=== PATIENT | female | born 1970 | race Caucasian/White ===

== ENCOUNTER → 2021-03-04 | Outpatient (CLI) | payer BC ==
[2021-03-04 12:58] LABS: Basophils # (A) 0.1 k/uL (0-0.2); Basophils % (A) 1 %; Eosinophils # (A) 0.2 k/uL (0-0.7); Eosinophils % (A) 2 %; HCT 39.1 % (34.0-46.0); HGB 12.8 gm/dL (11.4-16.0); Lymphocytes # (A) 2.6 k/uL (1.0-4.8); Lymphocytes % (A) 29 %; MCH 30.1 pg (25.0-35.0); MCHC 32.8 g/dL (31.0-37.0); MCV 91.7 fL (80.0-100.0); Mean Platelet Volume 7.6; Monocytes # (A) 0.6 k/uL (0-1.0); Monocytes % (A) 6 %; Neutrophils # (A) 5.4 k/uL (1.3-7.7); Neutrophils % (A) 60 %; Platelet Count 305 k/uL (150-450); RBC 4.26 m/uL (3.80-5.40); RDW 13.1 % (11.5-15.5); WBC 8.9 k/uL (3.8-10.6)
== END | disposition home or self-care (01) ==
LOC: LABPAT 12:06
PROVIDERS: ATTEND Obstetrics & Gynecology
DX: Z01.818 Encounter for other preprocedural examination (principal); N93.8 Other specified abnormal uterine and vaginal bleeding; N84.0 Polyp of corpus uteri; I10 Essential (primary) hypertension
CPT/HCPCS: 85025; 93005

== ENCOUNTER 2021-03-23 06:11 | Day surgery (SDC) | payer BC ==
[2021-03-18 13:52] VITALS: BMI 42.5
--- NOTE | 2021-03-22 22:04 | P.HPOB ---
History of Present Illness H&P Date: 03/22/21 Chief Complaint: menorrhagia This is a 50 year old women with a history of dysfunctional uterine bleeding and findings of endometrial polyp by ultrasound. Polyp measures 0.9 cm. She is scheduled for hysteroscopy, D&C and polypectomy and novasure endometrial ablation for definative control of her bleeding. Endometrial biopsy confirms benign polyp tissue. She uses vasectomy for contraception. Review of Systems Constitutional: Denies chills, Denies fever Ears, nose, mouth and throat: Denies headache, Denies sore throat Respiratory: Denies cough Gastrointestinal: Denies abdominal pain, Denies diarrhea, Denies nausea, Denies vomiting Genitourinary: Reports abnormal vaginal bleeding Musculoskeletal: Denies myalgias Integumentary: Denies pruritus, Denies rash Neurological: Denies numbness, Denies weakness Psychiatric: Denies anxiety, Denies depression Endocrine: Denies fatigue, Denies weight change Past Medical History Past Medical History: Cancer, Hypertension Additional Past Medical History / Comment(s): Hx left breast cancer in 2010. Current back pain. History of Any Multi-Drug Resistant Organisms: None Reported Past Surgical History: Breast Surgery, Cholecystectomy, Orthopedic Surgery Additional Past Surgical History / Comment(s): BILATERAL MASTECTOMY WITH RECONSTRUCTION, LEFT KNEE ARTHROSCOPY. Past Anesthesia/Blood Transfusion Reactions: No Reported Reaction Additional Past Anesthesia/Blood Transfusion Reaction / Comment(s): "Started coughing during one surgery." Past Psychological History: Anxiety Smoking Status: Former smoker Past Alcohol Use History: Occasional Additional Past Alcohol Use History / Comment(s): Smoked socially yrs ago. Past Drug Use History: None Reported - Past Family History Father Family Medical History: Coronary Artery Disease (CAD) Additional Family Medical History / Comment(s): CABG. Brother(s) Family Medical History: Coronary Artery Disease (CAD) Additional Family Medical History / Comment(s): HX CABG. Medications and Allergies Home Medications Medication Instructions Recorded Confirmed Type Cyclobenzaprine [Flexeril] 10 mg PO TID PRN 03/18/21 03/18/21 History Metoprolol Succinate (ER) [Toprol 50 mg PO QAM 03/18/21 03/18/21 History Xl] Xanax (Unknown Dose) 1 tab PO HS PRN 03/18/21 03/18/21 History busPIRone HCL [Buspar] 7.5 mg PO BID 03/18/21 03/18/21 History methylPREDNISolone Dose Pack 4 mg PO DIRECTED 03/18/21 03/18/21 History [Medrol Dose Pack] Allergies Allergy/AdvReac Type Severity Reaction Status Date / Time No Known Allergies Allergy Verified 03/18/21 13:53 Exam - OBG Physical Exam Breast: both: normal Abdomen: bowel sounds normal Vulva: both: normal Vagina: normal moisture, no discharge Cervix: no lesion, no discharge Uterus: normal size, normal contour Adnexa: both: normal Anus/Rectum: normal perianal skin, no rectal mass, no hemorrhoids, heme negative Assessment and Plan (1) Dysfunctional uterine bleeding Status: Acute Code(s): N93.8 - OTHER SPECIFIED ABNORMAL UTERINE AND VAGINAL BLEEDING SNOMED Code(s): 55217114572075 (2) Endometrial polyp Status: Acute Code(s): N84.0 - POLYP OF CORPUS UTERI SNOMED Code(s): 19340858 Plan: Procedure reviewed, anticipated recovery including bleeding profile reviewed. RIsks include bleeding, transfusion, infection, uterine perforation or injury, ongoing bleeding. Consent obtained.
[~2021-03-23 06:11] MED LIST: DEXAMETHASONE SOD PHOSPHATE 4 MG/ML 1 ML VIAL IV ONE; LACTATED RINGERS 1,000 ML IV SCH; LIDOCAINE 1% (10MG/ML) FOR IV START INTRADERMA PRN; MIDAZOLAM 2 MG/2 ML VIAL IV PRN; ONDANSETRON 4 MG/2 ML VIAL IVP ONE; Pre Op ABX Message 1 EACH MISC MISCELLANE ONE
[2021-03-23] MEDS ORDERED: HYDROmorphone 0.5 MG/0.5 ML SYRINGE IVP PRN (07:00)
[2021-03-23] MEDS ORDERED: KETOROLAC 15 MG/ML 1 ML VIAL ONE (07:25)
[2021-03-23] MEDS ORDERED: PROPOFOL 10 MG/ML 20 ML VIAL IV ONE (07:25)
[2021-03-23] MEDS ORDERED: LIDOCAINE 1% INJ 10MG/ML (20 ML MDV) ONE (07:25)
[2021-03-23] MEDS ORDERED: fentaNYL (PF) 50 MCG/ML 2 ML AMP ONE (07:25)
[2021-03-23] MEDS ORDERED: MIDAZOLAM 2 MG/2 ML VIAL ONE (07:25)
[2021-03-23] MEDS ORDERED: LIDOCAINE 1%-EPI 1:100,000 20 ML VIAL SUBMUCOSAL ONE ×2 (08:00)
--- NOTE | 2021-03-23 08:24 | P.OP ---
Date of Procedure: 03/23/21 Preoperative Diagnosis: Dysfunctional uterine bleeding and endometrial polyp Postoperative Diagnosis: Same Procedure(s) Performed: Diagnostic hysteroscopy, D&C polypectomy, NovaSure endometrial ablation Anesthesia: [facility] Surgeon: Alida Cazares Estimated Blood Loss (ml): 5 IV fluids (ml): 200 Urine output (ml): 150 Pathology: other (Endometrial curettings) Condition: stable Disposition: PACU Operative Findings: Large friable endometrial polyp emanating from the posterior fundal region of the uterus Description of Procedure: After the patient was met in the preoperative holding area and all questions were answered, she was taken to the operating room where appropriate timeout procedure was undertaken. Anesthetic was administered without incident. She was positioned, prepped and draped in the dorsal lithotomy position. Exam under anesthetic was undertaken. Bladder was drained for approximately 150 mL of clear urine. Single-sided speculum was placed in the vagina and the cervix was grasped anteriorly with a single-tooth tenaculum. Paracervical block with lidocaine plus epinephrine was placed. The uterus was sounded to 9.5 cm. The cervix was sequentially dilated with Hegar dilators to allow for passage of the diagnostic hysteroscope. Hysteroscope was introduced and the above findings were noted. Hysteroscope was removed. Cervix then further dilated to allow for passage of the stone polyp forceps. Polyp forceps were introduced and polyp was removed. The sharp banjo curette was then introduced in the uterine cavity was circumferentially curettaged. The NovaSure ablation device was then inserted in the uterine cavity. Cavity length was 5.5 cm, width 4.0 cm cavity assessment test was passed. The device was enabled for a treatment cycle of 119 seconds at a power of 121 W. After cessation of the treatment cycle the device was removed. The hysteroscope was reintroduced and complete desiccation of the endometrial cavity was appreciated. Instruments were then removed from the cervix. Cervix was observed and no active bleeding was noted. Speculum was removed. The patient was awoken from anesthetic and transported recovery area in good condition. All counts reported to me as correct by the operating room staff.
[2021-03-23 08:29] VITALS: TEMP 97
[2021-03-23 09:14] VITALS: RESP 16
[2021-03-23 09:30] VITALS: BP 137/84; PULSE 67
== END 2021-03-23 10:02 | disposition home or self-care (01) ==
LOC: OR 06:11
PROVIDERS: ATTEND Obstetrics & Gynecology
DX: N93.8 Other specified abnormal uterine and vaginal bleeding (principal); N92.0 Excessive and frequent menstruation with regular cycle; I10 Essential (primary) hypertension; Z79.899 Other long term (current) drug therapy; K21.9 Gastro-esophageal reflux disease without esophagitis; Z87.891 Personal history of nicotine dependence; Z85.3 Personal history of malignant neoplasm of breast; Z98.890 Other specified postprocedural states
CPT/HCPCS: 81025; 58563; J2250; J1100; J2405; J2001; J3010; J1885; J2704; 88305

== ENCOUNTER 2021-06-09 04:30 | Inpatient (IN) | payer BC ==
[2021-06-09] MEDS ORDERED: HYDROmorphone 0.5 MG/0.5 ML SYRINGE IVP STA (05:28)
[2021-06-09 05:57] LABS: Basophils # (A) 0.1 k/uL (0-0.2); Basophils % (A) 0 %; Eosinophils # (A) 0.2 k/uL (0-0.7); Eosinophils % (A) 1 %; HCT 39.2 % (34.0-46.0); HGB 13.5 gm/dL (11.4-16.0); Lymphocytes # (A) 2.5 k/uL (1.0-4.8); Lymphocytes % (A) 15 %; MCH 31.6 pg (25.0-35.0); MCHC 34.3 g/dL (31.0-37.0); MCV 91.9 fL (80.0-100.0); Mean Platelet Volume 7.7; Monocytes # (A) 1.2 k/uL (0-1.0); Monocytes % (A) 7 %; Neutrophils # (A) 12.9 k/uL (1.3-7.7); Neutrophils % (A) 75 %; Platelet Count 346 k/uL (150-450); Poikilocytosis Slight; RBC 4.27 m/uL (3.80-5.40); RDW 13.7 % (11.5-15.5); WBC 17.2 k/uL (3.8-10.6)
--- NOTE | 2021-06-09 06:16 | ED ---
General Adult HPI - General Chief complaint: Skin/Abscess/Foreign Body Stated complaint: Hemorrhoid Time Seen by Provider: 06/09/21 05:06 Source: patient Mode of arrival: ambulatory - History of Present Illness Initial comments: This patient is a 50-year-old woman with history of previous hemorrhoids, who presents with complaint of perianal pain that is been going on for around 2 weeks now, getting progressively worse. The patient states that she had had uterine ablation, and following that procedure little bit of constipation. As result of constipation she believes she may have developed a hemorrhoid. She states there is pain with bowel movement, wiping, and also now with sitting. She has noted there is some perianal swelling. Pains of been progressively worse. She also states that there has been occasional blood with bowel movement. Patient denies any systemic symptoms. No abdominal pain. -: week(s) Location: buttocks Radiation: non-radiation Quality: sharp Consistency: constant Improves with: none Worsens with: other (Bowel movement/ sitting) Associated Symptoms: denies other symptoms Treatments Prior to Arrival: other (Hemorrhoid preparations) - Related Data Home Medications Medication Instructions Recorded Confirmed Cyclobenzaprine [Flexeril] 10 mg PO TID PRN 03/18/21 03/18/21 Metoprolol Succinate (ER) [Toprol 50 mg PO QAM 03/18/21 03/23/21 Xl] Xanax (Unknown Dose) 1 tab PO HS PRN 03/18/21 03/18/21 busPIRone HCL [Buspar] 7.5 mg PO BID 03/18/21 03/18/21 methylPREDNISolone Dose Pack 4 mg PO DIRECTED 03/18/21 03/23/21 [Medrol Dose Pack] Allergies Allergy/AdvReac Type Severity Reaction Status Date / Time No Known Allergies Allergy Verified 06/09/21 04:49 Review of Systems ROS Statement: Those systems with pertinent positive or pertinent negative responses have been documented in the HPI. ROS Other: All systems not noted in ROS Statement are negative. Constitutional: Denies: fever, chills Respiratory: Denies: cough, dyspnea Cardiovascular: Denies: chest pain, palpitations Gastrointestinal: Reports: as per HPI, constipation. Denies: abdominal pain, n ausea, vomiting, diarrhea, melena, hematochezia Genitourinary: Denies: dysuria, frequency, hematuria Musculoskeletal: Denies: back pain Skin: Reports: as per HPI, lesions. Denies: rash Neurological: Denies: headache Hematological/Lymphatic: Denies: easy bleeding Past Medical History Past Medical History: Cancer Additional Past Medical History / Comment(s): BREAST CA 2010 History of Any Multi-Drug Resistant Organisms: None Reported Past Surgical History: Breast Surgery, Cholecystectomy, Orthopedic Surgery, Uterine Ablation Additional Past Surgical History / Comment(s): KIARA. MASTECTOMY WITH RECONSTRUCTION 02/22/2011. SCOPE LEFT KNEE Past Anesthesia/Blood Transfusion Reactions: Postoperative Nausea & Vomiting (PONV) Past Psychological History: Anxiety Smoking Status: Former smoker Past Alcohol Use History: Occasional Past Drug Use History: None Reported - Past Family History Father Family Medical History: Coronary Artery Disease (CAD) Additional Family Medical History / Comment(s): CABG. Brother(s) Family Medical History: Coronary Artery Disease (CAD) Additional Family Medical History / Comment(s): HX CABG. General Exam General appearance: alert, in no apparent distress Head exam: Present: atraumatic, normocephalic Eye exam: Present: normal appearance, scleral icterus Respiratory exam: Present: normal lung sounds bilaterally. Absent: respiratory distress, wheezes, rales, rhonchi, stridor Cardiovascular Exam: Present: regular rate, normal rhythm, normal heart sounds. Absent: systolic murmur, diastolic murmur, rubs, gallop GI/Abdominal exam: Present: soft. Absent: distended, tenderness, guarding, rebound, rigid, mass Rectal exam: Present: normal rectal tone, mass, tenderness, other (There appears to be prerenal abscess extending toward the right buttock.). Absent: hemorrhoids Extremities exam: Present: normal inspection, normal capillary refill. Absent: pedal edema, calf tenderness Back exam: Present: normal inspection. Absent: CVA tenderness (R), CVA tenderness (L), vertebral tenderness Neurological exam: Present: alert Skin exam: Present: warm, dry, intact, normal color. Absent: rash Course Vital Signs 06/09/21 04:49 Temperature 97.7 F Pulse Rate 95 Respiratory 19 Rate Blood Pressure 152/94 O2 Sat by Pulse 95 Oximetry Medical Decision Making - Lab Data Result diagrams: 06/09/21 05:34 Lab Results 06/09/21 Range/Units 05:34 WBC 17.2 H (3.8-10.6) k/uL RBC 4.27 (3.80-5.40) m/uL Hgb 13.5 (11.4-16.0) gm/dL Hct 39.2 (34.0-46.0) % MCV 91.9 (80.0-100.0) fL MCH 31.6 (25.0-35.0) pg MCHC 34.3 (31.0-37.0) g/dL RDW 13.7 (11.5-15.5) % Plt Count 346 (150-450) k/uL MPV 7.7 Neutrophils % 75 % Lymphocytes % 15 % Monocytes % 7 % Eosinophils % 1 % Basophils % 0 % Neutrophils # 12.9 H (1.3-7.7) k/uL Lymphocytes # 2.5 (1.0-4.8) k/uL Monocytes # 1.2 H (0-1.0) k/uL Eosinophils # 0.2 (0-0.7) k/uL Basophils # 0.1 (0-0.2) k/uL Poikilocytosis Slight Disposition Referrals: Christopher Batista DO [Primary Care Provider] - 1-2 days
[2021-06-09 06:17] LABS: ALT 17 U/L (4-34); AST 21 U/L (14-36); African American GFR (CKD) >90 (>60 ml/min/1.73 sqM); Albumin 4.2 g/dL (3.5-5.0); Alkaline Phosphatase 85 U/L (38-126); Amylase 52 U/L (30-110); Anion Gap 11 mmol/L; Blood Urea Nitrogen 9 mg/dL (7-17); Calcium 9.5 mg/dL (8.4-10.2); Carbon Dioxide 22 mmol/L (22-30); Chloride 105 mmol/L (98-107); Glucose 102 mg/dL (74-99); Lipase 112 U/L (23-300); Non-African American GFR(CKD) >90 (>60 ml/min/1.73 sqM); Sodium 138 mmol/L (137-145); Total Bilirubin 1.1 mg/dL (0.2-1.3); Total Protein 7.1 g/dL (6.3-8.2)
--- NOTE | 2021-06-09 06:53 | CT ---
EXAMINATION TYPE: CT pelvis w con DATE OF EXAM: 06/09/2021 COMPARISON: None. HISTORY: perianal abscess. Anal pain and swelling. CT DLP: 2765 mGycm Automated exposure control for dose reduction was used. CONTRAST: Performed with IV Contrast, patient injected with 100 mL of Isovue 300. FINDINGS: Adjacent to the anus in the left sided fact there is mild to moderate fat stranding with thin-walled fluid collections and a few air-fluid levels, some irregular linear medial enhancement is noted. Over all area of inflammation measures 5.3 x 4.7 cm axial image 70 x 5.4 cm craniocaudal dimension on imag e 78. Findings consistent with perianal inflammatory process with developing abscess formation. No th ick walled well-formed drainable abscess currently seen. There is an anteverted uterus. Both ovaries normal in size. No suspicious bowel dilatation. Normal-ap pearing appendix. No intraperitoneal pelvic fluid collection. Occasional scattered pelvic phlebolith. Urinary bladder within normal limits. Bilateral groin region unremarkable. Incidental moderate to severe disc space narrowing with sclerosis and vacuum disc phenomenon right L4 -L5 level. IMPRESSION: Left perianal infectious or inflammatory process over 5.4 segment with ill-defined fluid and fluid collections that have air fluid levels. No well-formed thick walled drainable abscess curre ntly. Developing abscesses suspected.
[2021-06-09] MEDS ORDERED: PIPERACILLIN-TAZOBACTAM 3.375 GM in SODIUM CHLORIDE 0.9% 100 ML IVPB STA (07:19)
[2021-06-09] MEDS ORDERED: NALOXONE 0.4 MG/ML 1 ML VIAL IV PRN (07:20)
[2021-06-09] MEDS ORDERED: MAG HYDROX/AL HYDROX/SIMETH 30 ML CUP PO PRN (07:20)
[2021-06-09] MEDS ORDERED: ONDANSETRON 4 MG/2 ML VIAL IVP PRN (07:20)
[2021-06-09] MEDS: METOPROLOL SUCCINATE (ER) 50 MG TAB.ER.24H PO SCH (08:41)
[2021-06-09] MEDS: FAMOTIDINE 20 MG TAB PO SCH ×2 (08:41→19:46)
[2021-06-09] MEDS: busPIRone HCl 5 MG TAB PO SCH ×2 (08:41→19:46)
[2021-06-09] MEDS: SODIUM CHLORIDE 0.9% 1,000 ML IV SCH ×2 (08:41→15:55)
[2021-06-09] MEDS: HYDROmorphone 1 MG/ML 1 ML SYRINGE IVP PRN (08:47)
--- NOTE | 2021-06-09 12:45 | P.HPIM ---
History of Present Illness This is a pleasant 50 years old female with past medical history of breast cancer. History of anxiety. Presents with perineal area of discomfort, she thought she had the hemorrhoids with little discomfort, occasional pain, little bit of blood at times but not overt GI bleed. She denies fever. Denies trauma. Ulcerative colitis. No chest pain or dyspnea or headache or dizziness. No fever on Admission she has some tachycardia 95-105. Other vitals look stable Labs showed leukocytosis of 17.2. Rest of CBC and BMP is unremarkable. She has pelvic CT with IV contrast showing left perianal infectious process with possible abscess 5.3 x 4.7 x 7.0 cm She denies smoking, illicit tracts. Occasional alcohol In the emergency room she was started on Zosyn on normal saline at 130 mL/h Review of Systems CONSTITUTIONAL: No fever, no malaise, no fatigue. HEENT: No recent visual problems or hearing problems. Denied any sore throat. CARDIOVASCULAR: No orthopnea, PND, no palpitations, no syncope. PULMONARY: No shortness of breath, no cough, no hemoptysis. GASTROINTESTINAL: No diarrhea, no nausea, no vomiting, no abdominal pain. Normoactive bowel sounds. NEUROLOGICAL: No headaches, no weakness, no numbness. HEMATOLOGICAL: Denies any bleeding or petechiae. GENITOURINARY: Denies any burning micturition, frequency, or urgency. MUSCULOSKELETAL/RHEUMATOLOGICAL: Denies any joint pain, swelling, or any muscle pain. ENDOCRINE: Denies any polyuria or polydipsia. Past Medical History Past Medical History: Cancer Additional Past Medical History / Comment(s): BREAST CA 2010 History of Any Multi-Drug Resistant Organisms: None Reported Past Surgical History: Breast Surgery, Cholecystectomy, Orthopedic Surgery, Uterine Ablation Additional Past Surgical History / Comment(s): KIARA. MASTECTOMY WITH RECONSTRUCTION 02/22/2011. SCOPE LEFT KNEE Past Anesthesia/Blood Transfusion Reactions: Postoperative Nausea & Vomiting (PONV) Past Psychological History: Anxiety Smoking Status: Former smoker Past Alcohol Use History: Occasional Past Drug Use History: None Reported - Past Family History Father Family Medical History: Coronary Artery Disease (CAD) Additional Family Medical History / Comment(s): CABG. Brother(s) Family Medical History: Coronary Artery Disease (CAD) Additional Family Medical History / Comment(s): HX CABG. Medications and Allergies Home Medications Medication Instructions Recorded Confirmed Type Metoprolol Succinate (ER) [Toprol 50 mg PO QAM 03/18/21 06/09/21 History Xl] busPIRone HCL [Buspar] 7.5 mg PO BID 03/18/21 06/09/21 History ALPRAZolam [Xanax] 0.5 mg PO DAILY PRN 06/09/21 06/09/21 History traZODone HCL 50 mg PO HS PRN 06/09/21 06/09/21 History Allergies Allergy/AdvReac Type Severity Reaction Status Date / Time No Known Allergies Allergy Verified 06/09/21 07:59 Physical Exam Vitals: Vital Signs Temp Pulse Resp BP Pulse Ox 06/09/21 10:00 18 06/09/21 09:00 18 06/09/21 08:31 105 H 18 151/114 97 06/09/21 04:49 97.7 F 95 19 152/94 95 Intake and Output 06/08/21 06/09/21 06/09/21 22:59 06:59 14:59 Other: Weight 122.47 kg Examination and call encounter on rash 18 was done in the presents of the emergency room nurse Evelyn and after patient gave verbal consent GENERAL: The patient is alert and oriented x3, not in any acute distress. Well developed, well nourished. HEENT: Pupils are round and equally reacting to light. EOMI. No scleral icterus. No conjunctival pallor. Normocephalic, atraumatic. No pharyngeal erythema. No thyromegaly. CARDIOVASCULAR: S1 and S2 present. No murmurs, rubs, or gallops. PULMONARY: Chest is clear to auscultation, no wheezing or crackles. -ABDOMEN: Soft, nontender, nondistended, normoactive bowel sounds. No palpable organomegaly. Left perianal fluctuating area with induration. No discharge or open wound MUSCULOSKELETAL: No joint swelling or deformity. EXTREMITIES: No cyanosis, clubbing, or pedal edema. NEUROLOGICAL: Gross neurological examination did not reveal any focal deficits. SKIN: No rashes. No petechiae Results CBC & Chem 7: 06/09/21 05:34 06/09/21 05:34 Labs: Abnormal Lab Results - Last 24 Hours (Table) 06/09/21 06/09/21 Range/Units 05:34 05:34 WBC 17.2 H (3.8-10.6) k/uL Neutrophils # 12.9 H (1.3-7.7) k/uL Monocytes # 1.2 H (0-1.0) k/uL Glucose 102 H (74-99) mg/dL Assessment and Plan Assessment: Left perianal abscess Mild sepsis with tachycardia and leukocytosis secondary to above Obesity with BMI of 42.3 Plan: This is a pleasant 50 years old female who presents with left perianal abscess. Continue with antibiotics and IV fluid Surgical team consult, who recommended IV antibiotics and monitoring for now Continue with IV fluids Labs and medication were reviewed.. Continue same treatment. Continue with symptomatic treatment. Resume home medication. Monitor lytes and vitals. DVT and GI prophylaxis. Further recommendations depends on the clinical course of the patient DVT prophylaxis: Subcutaneous heparin GI Prophylaxis: Pepcid
[2021-06-09] MEDS: HYDROmorphone 0.5 MG/0.5 ML SYRINGE IVP PRN ×2 (13:04→19:48)
--- NOTE | 2021-06-09 13:33 | P.GSCN ---
History of Present Illness Consult date: 06/09/21 Reason for Consult: Perianal infection History of present illness: This a 50-year-old female who is a two-week history of perianal pain. Patient states her pain increased yesterday. She was worked up emergency room found evidence of a possible early perianal abscess. In the left gluteal area Past Medical History Past Medical History: Cancer Additional Past Medical History / Comment(s): BREAST CA 2010 History of Any Multi-Drug Resistant Organisms: None Reported Past Surgical History: Breast Surgery, Cholecystectomy, Orthopedic Surgery, Uterine Ablation Additional Past Surgical History / Comment(s): KIARA. MASTECTOMY WITH RECONSTRUCTION 02/22/2011. SCOPE LEFT KNEE Past Anesthesia/Blood Transfusion Reactions: Postoperative Nausea & Vomiting (PONV) Past Psychological History: Anxiety Additional Psychological History / Comment(s): R/T BREAST CA- PT DOES GET CLAUSTROPHOBIC AT TIMES Smoking Status: Never smoker Past Alcohol Use History: Occasional Past Drug Use History: None Reported - Past Family History Father Family Medical History: Coronary Artery Disease (CAD) Additional Family Medical History / Comment(s): CABG. Brother(s) Family Medical History: Coronary Artery Disease (CAD) Additional Family Medical History / Comment(s): HX CABG. Medications and Allergies Home Medications Medication Instructions Recorded Confirmed Type Metoprolol Succinate (ER) [Toprol 50 mg PO QAM 03/18/21 06/09/21 History Xl] busPIRone HCL [Buspar] 7.5 mg PO BID 03/18/21 06/09/21 History ALPRAZolam [Xanax] 0.5 mg PO DAILY PRN 06/09/21 06/09/21 History traZODone HCL 50 mg PO HS PRN 06/09/21 06/09/21 History Allergies Allergy/AdvReac Type Severity Reaction Status Date / Time No Known Allergies Allergy Verified 06/09/21 07:59 Surgical - Exam Vital Signs Temp Pulse Resp BP Pulse Ox 97.7 F 95 19 152/94 95 06/09/21 04:49 06/09/21 04:49 06/09/21 04:49 06/09/21 04:49 06/09/21 04:49 - General well developed, well nourished, no distress - Eyes PERRL - ENT normal pinna - Neck no masses - Respiratory normal expansion - Cardiovascular Rhythm: regular - Abdomen Abdomen: soft, non tender - Rectum I'll fullness in the left renal area. No evidence of any significant abscess Results - Labs 06/09/21 05:34 06/09/21 05:34 Abnormal Lab Results - Last 24 Hours (Table) 06/09/21 06/09/21 Range/Units 05:34 05:34 WBC 17.2 H (3.8-10.6) k/uL Neutrophils # 12.9 H (1.3-7.7) k/uL Monocytes # 1.2 H (0-1.0) k/uL Glucose 102 H (74-99) mg/dL Diabetes panel 06/09/21 Range/Units 05:34 Sodium 138 (137-145) mmol/L Potassium 4.0 (3.5-5.1) mmol/L Chloride 105 (98-107) mmol/L Carbon Dioxide 22 (22-30) mmol/L BUN 9 (7-17) mg/dL Creatinine 0.68 (0.52-1.04) mg/dL Glucose 102 H (74-99) mg/dL Calcium 9.5 (8.4-10.2) mg/dL AST 21 (14-36) U/L ALT 17 (4-34) U/L Alkaline Phosphatase 85 (38-126) U/L Total Protein 7.1 (6.3-8.2) g/dL Albumin 4.2 (3.5-5.0) g/dL Calcium panel 06/09/21 Range/Units 05:34 Calcium 9.5 (8.4-10.2) mg/dL Albumin 4.2 (3.5-5.0) g/dL Pituitary panel 06/09/21 Range/Units 05:34 Sodium 138 (137-145) mmol/L Potassium 4.0 (3.5-5.1) mmol/L Chloride 105 (98-107) mmol/L Carbon Dioxide 22 (22-30) mmol/L BUN 9 (7-17) mg/dL Creatinine 0.68 (0.52-1.04) mg/dL Glucose 102 H (74-99) mg/dL Calcium 9.5 (8.4-10.2) mg/dL Adrenal panel 06/09/21 Range/Units 05:34 Sodium 138 (137-145) mmol/L Potassium 4.0 (3.5-5.1) mmol/L Chloride 105 (98-107) mmol/L Carbon Dioxide 22 (22-30) mmol/L BUN 9 (7-17) mg/dL Creatinine 0.68 (0.52-1.04) mg/dL Glucose 102 H (74-99) mg/dL Calcium 9.5 (8.4-10.2) mg/dL Total Bilirubin 1.1 (0.2-1.3) mg/dL AST 21 (14-36) U/L ALT 17 (4-34) U/L Alkaline Phosphatase 85 (38-126) U/L Total Protein 7.1 (6.3-8.2) g/dL Albumin 4.2 (3.5-5.0) g/dL Assessment and Plan Assessment: Induration of left perianal area. No drainable abscesses seen you. Patient will be observed and continued IV antibiotics
[2021-06-09] MEDS: PIPERACILLIN-TAZOBACTAM 3.375 GM in SODIUM CHLORIDE 0.9% 100 ML IVPB SCH (15:54)
[2021-06-09] MEDS: HEPARIN SODIUM,PORCINE/PF 5,000 UNIT/0.5 ML SYRINGE SQ SCH (19:46)
[2021-06-10] MEDS: HYDROmorphone 1 MG/ML 1 ML SYRINGE IVP PRN (00:07)
[2021-06-10] MEDS: PIPERACILLIN-TAZOBACTAM 3.375 GM in SODIUM CHLORIDE 0.9% 100 ML IVPB SCH ×4 (00:07→23:43)
[2021-06-10] MEDS: SODIUM CHLORIDE 0.9% 1,000 ML IV SCH ×3 (00:08→23:56)
[2021-06-10] MEDS ORDERED: HYDROcodone/APAP 7.5-325MG 1 EACH TAB PO PRN (00:22)
[2021-06-10] MEDS: HYDROmorphone 0.5 MG/0.5 ML SYRINGE IVP PRN (04:52)
[2021-06-10] MEDS: HEPARIN SODIUM,PORCINE/PF 5,000 UNIT/0.5 ML SYRINGE SQ SCH ×2 (08:08→19:51)
[2021-06-10] MEDS: FAMOTIDINE 20 MG TAB PO SCH ×2 (08:09→19:51)
[2021-06-10] MEDS: METOPROLOL SUCCINATE (ER) 50 MG TAB.ER.24H PO SCH (08:09)
[2021-06-10] MEDS: busPIRone HCl 5 MG TAB PO SCH ×2 (08:09→19:51)
--- NOTE | 2021-06-10 15:16 | P.PN ---
Subjective This is a pleasant 50 years old female with past medical history of breast cancer. History of anxiety. Presents with perineal area of discomfort, she thought she had the hemorrhoids with little discomfort, occasional pain, little bit of blood at times but not overt GI bleed. She denies fever. Denies trauma. Ulcerative colitis. No chest pain or dyspnea or headache or dizziness. No fever on Admission she has some tachycardia 95-105. Other vitals look stable Labs showed leukocytosis of 17.2. Rest of CBC and BMP is unremarkable. She has pelvic CT with IV contrast showing left perianal infectious process with possible abscess 5.3 x 4.7 x 7.0 cm She denies smoking, illicit tracts. Occasional alcohol In the emergency room she was started on Zosyn on normal saline at 130 mL/h 06/10/2021 Patient is lying in bed comfortable. She states that her area of the left buttock and perianal area looks better with less pain. There was some d ischarge. She is afebrile and hemodynamically stable Labs tomorrow Remains on Zosyn and IV hydration. Objective - Vital Signs Vital signs: Vital Signs Temp 98.8 F 06/10/21 13:40 Pulse 87 06/10/21 13:40 Resp 18 06/10/21 13:40 BP 113/76 06/10/21 13:40 Pulse Ox 96 06/10/21 13:40 Intake & Output 06/09/21 06/10/21 06/10/21 18:59 06:59 18:59 Weight 122.47 kg Other: # Voids 1 2 - Exam Examination and call encounter on 18 was done in the presents of the emergency room nurse Evelyn and after patient gave verbal consent GENERAL: The patient is alert and oriented x3, not in any acute distress. Well developed, well nourished. HEENT: Pupils are round and equally reacting to light. EOMI. No scleral icterus. No conjunctival pallor. Normocephalic, atraumatic. No pharyngeal erythema. No thyromegaly. CARDIOVASCULAR: S1 and S2 present. No murmurs, rubs, or gallops. PULMONARY: Chest is clear to auscultation, no wheezing or crackles. -ABDOMEN: Soft, nontender, nondistended, normoactive bowel sounds. No palpable organomegaly. Genital and perianal exam is deferred today MUSCULOSKELETAL: No joint swelling or deformity. EXTREMITIES: No cyanosis, clubbing, or pedal edema. NEUROLOGICAL: Gross neurological examination did not reveal any focal deficits. SKIN: No rashes. No petechiae - Labs CBC & Chem 7: 06/09/21 05:34 06/09/21 05:34 Labs: Microbiology - Last 24 Hours (Table) 06/09/21 06:12 Blood Culture - Preliminary Blood No Growth after 24 hours 06/09/21 05:34 Blood Culture - Preliminary Blood No Growth after 24 hours Assessment and Plan Assessment: Left perianal abscess Mild sepsis with tachycardia and leukocytosis secondary to above Obesity with BMI of 42.3 Plan: This is a pleasant 50 years old female who presents with left perianal abscess. Continue with antibiotics and IV fluid Surgical team consult, who recommended IV antibiotics and monitoring for now Continue with IV fluids ID team consult Labs and medication were reviewed.. Continue same treatment. Continue with symptomatic treatment. Resume home medication. Monitor lytes and vitals. DVT and GI prophylaxis. Further recommendations depends on the clinical course of the patient DVT prophylaxis: Subcutaneous heparin GI Prophylaxis: Pepcid
[2021-06-10] MEDS ORDERED: ALPRAZolam 0.5 MG TAB PO PRN (21:25)
[2021-06-11] MEDS: ACETAMINOPHEN TAB 325 MG TAB PO PRN ×3 (04:55→16:50)
[2021-06-11] MEDS: HEPARIN SODIUM,PORCINE/PF 5,000 UNIT/0.5 ML SYRINGE SQ SCH ×2 (08:12→20:30)
[2021-06-11] MEDS: busPIRone HCl 5 MG TAB PO SCH ×2 (08:13→20:28)
[2021-06-11] MEDS: PIPERACILLIN-TAZOBACTAM 3.375 GM in SODIUM CHLORIDE 0.9% 100 ML IVPB SCH ×3 (08:13→23:14)
[2021-06-11] MEDS: FAMOTIDINE 20 MG TAB PO SCH ×2 (08:13→20:30)
--- NOTE | 2021-06-11 08:13 | P.CONS ---
History of Present Illness - Reason for Consult Consult date: 06/10/21 perianal abscess Requesting physician: Mehran Juarez Sheet - Chief Complaint perianal pain x 2 weeks - History of Present Illness History of present illness : Patient is 50-year-old female presenting to the ER for evaluation of perianal pain that has been going on for about 2 weeks before presentation to the hospital patient initially thought it was hemorrhoids and was treating as such subsequently started having more pain mostly to the left perianal gluteal area describing it to be throbbing intensity progressively got worse almost 8 out of 10 and no radiation patient did have some chills but denies high-grade fever on presentation to the hospital patient was afebrile patient did have white count of 17.2 patient did have a pelvic CT done which did shows left perineal inflammatory process and ill-defined fluid collection last night and the patient did have spontaneous drainage of that abscess cultures were obtained which are currently pending blood cultures obtained patient be started on Zosyn admitted to the hospital infectious disease was consulted for further management of antibiotic therapy Review of system: CONSTITUTIONAL: Positive for weakness along with low-grade fever. EYES: No complaint. ENT: No complaint. RESPIRATORY: No complaint. CARDIOVASCULAR: No complaint. GENITOURINARY: No complaint. GASTROINTESTINAL: As per HPI. MUSCULOSKELETAL: No complaint. INTEGUMENTARY: No complaint. PSYCHOLOGIC: No complaint. ENDOCRINE: No complaint. NEUROLOGIC: No complaint. Past medical history : Reviewed, documented below Past surgical history : Reviewed, documented below Social history: Reviewed, documented below Medications: Reviewed, as documented below GENERAL DESCRIPTION: Middle-aged female lying in bed, no distress. No tachypnea or accessory muscle of respiration use. HEENT: Shows Pallor , no scleral icterus. Oral mucous membrane is dry. NECK: Trachea central, no thyromegaly. LUNGS: Unlabored breathing. Clear to auscultation anteriorly. No wheeze or crackle. HEART: S1, S2, regular rate and rhythm. ABDOMEN: Soft, no tenderness , guarding or rigidity , left perineal area did have area of induration and a draining wound EXTREMITIES: No edema of feet. SKIN: No rash, no masses palpable. NEUROLOGICAL: The patient is awake, alert, oriented x3, mood and affect normal. LABS AND RADIOLOGY: Reviewed results see below Assessment : Patient with left perineal abscess with spontaneous drainage concern for possible skin versus occult origin in view of the close proximity to the GI tract , culture has been obtained which are currently pending and will need to cover for both gram-positive as well as gram-negative pathogen while waiting for the culture finalized Plan: 1-Zosyn 3.375 g every 8 hours to continue 2-may need further surgical drainage if the pain and induration persist 3-dry protective dressing to the area We will follow on clinical condition and cultures to further adjust medication if needed Thank you for this consultation we will follow the patient along with you Past Medical History Past Medical History: Cancer Additional Past Medical History / Comment(s): BREAST CA 2010 History of Any Multi-Drug Resistant Organisms: None Reported Past Surgical History: Breast Surgery, Cholecystectomy, Orthopedic Surgery, Uterine Ablation Additional Past Surgical History / Comment(s): KIARA. MASTECTOMY WITH RECONSTRUCTION 02/22/2011. SCOPE LEFT KNEE Past Anesthesia/Blood Transfusion Reactions: Postoperative Nausea & Vomiting (PONV) Past Psychological History: Anxiety Additional Psychological History / Comment(s): R/T BREAST CA- PT DOES GET CLAUSTROPHOBIC AT TIMES Smoking Status: Never smoker Past Alcohol Use History: Occasional Past Drug Use History: None Reported - Past Family History Father Family Medical History: Coronary Artery Disease (CAD) Additional Family Medical History / Comment(s): CABG. Brother(s) Family Medical History: Coronary Artery Disease (CAD) Additional Family Medical History / Comment(s): HX CABG. Medications and Allergies Home Medications Medication Instructions Recorded Confirmed Type Metoprolol Succinate (ER) [Toprol 50 mg PO QAM 03/18/21 06/09/21 History Xl] busPIRone HCL [Buspar] 7.5 mg PO BID 03/18/21 06/09/21 History ALPRAZolam [Xanax] 0.5 mg PO DAILY PRN 06/09/21 06/09/21 History traZODone HCL 50 mg PO HS PRN 06/09/21 06/09/21 History Allergies Allergy/AdvReac Type Severity Reaction Status Date / Time No Known Allergies Allergy Verified 06/09/21 07:59 Physical Exam Vitals: Vital Signs Temp Pulse Resp BP Pulse Ox 06/10/21 07:26 98.4 F 84 16 122/77 97 06/10/21 02:30 98.7 F 97 16 127/75 97 08/18/21 19:30 98.8 F 88 17 126/85 97 06/09/21 15:40 98.5 F 88 16 155/90 98 Intake and Output 06/09/21 06/10/21 06/10/21 22:59 06:59 14:59 Other: # Voids 1 2 Results CBC & Chem 7: 06/09/21 05:34 06/09/21 05:34 Labs: Microbiology - Last 24 Hours (Table) 06/09/21 06:12 Blood Culture - Preliminary Blood No Growth after 24 hours 06/09/21 05:34 Blood Culture - Preliminary Blood No Growth after 24 hours
[2021-06-11] MEDS: METOPROLOL SUCCINATE (ER) 50 MG TAB.ER.24H PO SCH (08:32)
[2021-06-11 11:12] LABS: Basophils # (A) 0.04 X 10*3/uL (0.00-0.10); Basophils % (A) 0.4 %; Eosinophils # (A) 0.13 X 10*3/uL (0.04-0.35); Eosinophils % (A) 1.4 %; HCT 33.7 % (37.2-46.3); HGB 11.2 g/dL (12.0-15.0); Lymphocytes # (A) 2.23 X 10*3/uL (0.90-5.00); Lymphocytes % (A) 23.2 %; MCH 30.8 pg (27.0-32.0); MCHC 33.2 g/dL (32.0-37.0); MCV 92.6 fL (80.0-97.0); Mean Platelet Volume 10.2 fL (9.5-12.2); Monocytes # (A) 0.94 X 10*3/uL (0.20-1.00); Monocytes % (A) 9.8 %; Neutrophils # (A) 6.21 X 10*3/uL (1.80-7.70); Neutrophils % (A) 64.6 %; Platelet Count 298 X 10*3/uL (140-440); RBC 3.64 X 10*6/uL (4.10-5.20); RDW 12.3 % (11.5-14.5); WBC 9.61 X 10*3/uL (4.50-10.00)
[2021-06-11 11:36] LABS: African American GFR (CKD) 117.9 (60.0-200.0); Calcium 8.1 mg/dL (8.7-10.3); Non-African American GFR(CKD) 101.7 (60.0-200.0); Potassium 3.5 mmol/L (3.5-5.5)
--- NOTE | 2021-06-11 11:49 | P.PN ---
Progress Note - Text Progress Note Date: 06/11/21 Patient feels better. Her pain is decreased. She states she has a decreased range. Status post drainage of perianal abscess. Patient received local wound care. I discussed with discharged home over the next 24-48 hours.
--- NOTE | 2021-06-11 16:58 | PN ---
PROGRESS NOTE DATE OF SERVICE: 06/11/2021 REASON FOR FOLLOWUP: Left abscess and cellulitis. INTERVAL HISTORY: The patient is afebrile. The patient is currently breathing comfortably. Overall pain and discomfort to the left has decreased. No chest pain, shortness of breath or cough. No abdominal pain or diarrhea. PHYSICAL EXAMINATION: Blood pressure 129/77, pulse of 73, temperature 98.5. She is 96% on room air. GENERAL DESCRIPTION: General description is a middle-aged female lying in bed in no distress. RESPIRATORY SYSTEM: Unlabored breathing. Clear to auscultation anteriorly. HEART: S1, S2. Regular rate and rhythm. ABDOMEN: Soft. No tenderness. LABS: Hemoglobin is 11.2, white count 9.61, creatinine 0.7. Local culture showing Gram- negative. Blood culture negative. DIAGNOSTIC IMPRESSION AND PLAN: Patient with left abscess with a gram-negative. Patient is covered with Zosyn; to continue while waiting for the culture to finalize and monitor clinical course closely. Continue with supportive care. MMODL / IJN: [id number] /
[2021-06-11 19:55] VITALS: RESP 18
[2021-06-11] MEDS: SODIUM CHLORIDE 0.9% 1,000 ML IV SCH (20:32)
[2021-06-11] MEDS: IBUPROFEN 600 MG TAB PO PRN (21:18)
[2021-06-12] MEDS: SODIUM CHLORIDE 0.9% 1,000 ML IV SCH
[2021-06-12] MEDS: ACETAMINOPHEN TAB 325 MG TAB PO PRN ×2 (01:55→09:37)
[2021-06-12] MEDS: IBUPROFEN 600 MG TAB PO PRN (06:08)
[2021-06-12] MEDS: PIPERACILLIN-TAZOBACTAM 3.375 GM in SODIUM CHLORIDE 0.9% 100 ML IVPB SCH (08:07)
[2021-06-12] MEDS: busPIRone HCl 5 MG TAB PO SCH (08:07)
[2021-06-12] MEDS: HEPARIN SODIUM,PORCINE/PF 5,000 UNIT/0.5 ML SYRINGE SQ SCH (08:07)
[2021-06-12] MEDS: FAMOTIDINE 20 MG TAB PO SCH (08:08)
[2021-06-12] MEDS: METOPROLOL SUCCINATE (ER) 50 MG TAB.ER.24H PO SCH (09:37)
[2021-06-12] MEDS ORDERED: IBUPROFEN 600 MG TAB PO PRN (10:28)
--- NOTE | 2021-06-12 10:52 | P.PN ---
Subjective Progress Note Date: 06/11/21 50 years old female with past medical history of breast cancer. History of anxiety. Presents with perineal area of discomfort, she thought she had the hemorrhoids with little discomfort, occasional pain, little bit of blood at times but not overt GI bleed. She denies fever. Denies trauma. Ulcerative colitis. No chest pain or dyspnea or headache or dizziness. No fever on Admission she has some tachycardia 95-105. Other vitals look stable Labs showed leukocytosis of 17.2. Rest of CBC and BMP is unremarkable. She has pelvic CT with IV contrast showing left perianal infectious process with possible abscess 5.3 x 4.7 x 7.0 cm She denies smoking, illicit tracts. Occasional alcohol In the emergency room she was started on Zosyn on normal saline at 130 mL/h Objective - Vital Signs Vital signs: Vital Signs Temp 98.0 F 06/11/21 08:00 Pulse 75 06/11/21 08:00 Resp 16 06/11/21 08:00 BP 154/92 06/11/21 08:00 Pulse Ox 96 06/11/21 08:00 Intake & Output 06/10/21 06/11/21 06/11/21 18:59 06:59 18:59 Intake Total 300 Balance 300 Intake: Oral 300 Other: # Voids 1 2 1 # Bowel Movements 1 - Exam Examination and call encounter on rash 18 was done in the presents of the emergency room nurse Evelyn and after patient gave verbal consent GENERAL: The patient is alert and oriented x3, not in any acute distress. Well developed, well nourished. HEENT: Pupils are round and equally reacting to light. EOMI. No scleral icterus. No conjunctival pallor. Normocephalic, atraumatic. No pharyngeal erythema. No thyromegaly. CARDIOVASCULAR: S1 and S2 present. No murmurs, rubs, or gallops. PULMONARY: Chest is clear to auscultation, no wheezing or crackles. -ABDOMEN: Soft, nontender, nondistended, normoactive bowel sounds. No palpable organomegaly. Genital and perianal exam is deferred today MUSCULOSKELETAL: No joint swelling or deformity. EXTREMITIES: No cyanosis, clubbing, or pedal edema. NEUROLOGICAL: Gross neurological examination did not reveal any focal deficits. SKIN: No rashes. No petechiae - Labs CBC & Chem 7: 06/11/21 06:57 06/11/21 06:57 Labs: Abnormal Lab Results - Last 24 Hours (Table) 06/11/21 06/11/21 Range/Units 06:57 06:57 RBC 3.64 L (4.10-5.20) X 10*6/uL Hgb 11.2 L (12.0-15.0) g/dL Hct 33.7 L (37.2-46.3) % Immature Gran # 0.06 H (0.00-0.04) X 10*3/uL BUN 7.0 L (9.0-27.0) mg/dL BUN/Creatinine Ratio 10.00 L (12.00-20.00) Ratio Calcium 8.1 L (8.7-10.3) mg/dL Microbiology - Last 24 Hours (Table) 06/09/21 06:12 Blood Culture - Preliminary Blood No Growth after 48 hours 06/09/21 05:34 Blood Culture - Preliminary Blood No Growth after 48 hours 06/10/21 01:30 Gram Stain - Preliminary Buttock Wound Culture - Preliminary Assessment and Plan Assessment: Left perianal abscess Mild sepsis with tachycardia and leukocytosis secondary to above Obesity with BMI of 42.3 Plan: This is a pleasant 50 years old female who presents with left perianal abscess. Continue with antibiotics and IV fluid Surgical team consult, who recommended IV antibiotics and monitoring for now Continue with IV fluids ID team consult Labs and medication were reviewed.. Continue same treatment. Continue with symptomatic treatment. Resume home medication. Monitor lytes and vitals. DVT and GI prophylaxis. Further recommendations depends on the clinical course of the patient DVT prophylaxis: Subcutaneous heparin GI Prophylaxis: Pepcid
--- NOTE | 2021-06-12 11:16 | P.PN ---
Subjective Progress Note Date: 06/12/21 Principal diagnosis: Perianal abscess Patient doing well today. Says her pain is much improved. She is quite anxious to go home. Remains on IV antibiotics presently. Objective - Vital Signs Vital signs: Vital Signs Temp 98.2 F 06/12/21 08:00 Pulse 73 06/12/21 08:00 Resp 18 06/12/21 08:00 BP 141/85 06/12/21 08:00 Pulse Ox 100 06/12/21 08:00 Intake & Output 06/11/21 06/12/21 06/12/21 18:59 06:59 18:59 Intake Total 1100 Balance 1100 Intake: Oral 1100 Other: Voiding Method Toilet # Voids 1 3 # Bowel Movements 1 - Exam Abdomen: Soft, nontender, nondistended Rectal exam deferred - Labs CBC & Chem 7: 06/11/21 06:57 06/11/21 06:57 Labs: Abnormal Lab Results - Last 24 Hours (Table) 06/11/21 Range/Units 06:57 BUN 7.0 L (9.0-27.0) mg/dL BUN/Creatinine Ratio 10.00 L (12.00-20.00) Ratio Calcium 8.1 L (8.7-10.3) mg/dL Microbiology - Last 24 Hours (Table) 06/09/21 06:12 Blood Culture - Preliminary Blood No Growth after 72 hours 06/09/21 05:34 Blood Culture - Preliminary Blood No Growth after 72 hours 06/10/21 01:30 Gram Stain - Preliminary Buttock Wound Culture - Preliminary Gram Neg Bacilli Assessment and Plan (1) Perianal abscess Narrative/Plan: Patient doing well at this time. May discharge from our point of view. Continue antibiotics postdischarge. Current Visit: Yes Status: Acute Code(s): K61.0 - ANAL ABSCESS SNOMED Code(s): 98406506
[2021-06-12 14:55] VITALS: BP 145/87; PULSE 82; TEMP 98.1
--- NOTE | 2021-06-12 16:25 | PN ---
PROGRESS NOTE DATE OF SERVICE: 06/12/2021 REASON FOR FOLLOWUP: Left perianal abscess. INTERVAL HISTORY: The patient is afebrile. The patient is feeling better. Overall pain and discomfort to the left perianal area has significantly improved. No chest pain, shortness of breath or cough and no abdominal pain, no diarrhea. PHYSICAL EXAMINATION: Blood pressure 145/87, pulse of 82, temperature 98.1. She is 97% on room air. General description is a middle-aged female lying in bed in no distress. Respiratory system: Unlabored breathing, clear to auscultation anteriorly. Heart S1, S2. Regular rate and rhythm. Abdomen soft, no tenderness. Left perineal area induration has much improved. No drainage. LABS: White count normal at 9.61. Blood culture negative. Local culture with gram negative. has not been finalized. DIAGNOSTIC IMPRESSION AND PLAN: Patient with left perianal abscess and cellulitis status post spontaneous drainage. Overall improvement on Zosyn. Patient insisting on going home. Culture not finalized. She will be sent home on oral Augmentin and close outpatient followup. Prescription sent to the pharmacy. MMODL / IJN: [id number] /
== END 2021-06-12 16:45 | disposition home or self-care (01) | DRG 872 ==
LOC: EC 04:30 → 4SSUR 07:20 → 6PED 06-11 00:52
PROVIDERS: ADMIT Hospitalist; ATTEND Hospitalist
DX: A41.9 Sepsis, unspecified organism (principal); K61.0 Anal abscess; Z68.41 Body mass index [BMI] 40.0-44.9, adult; E66.9 Obesity, unspecified; F41.9 Anxiety disorder, unspecified; F40.240 Claustrophobia; K59.00 Constipation, unspecified; Z79.899 Other long term (current) drug therapy; Z82.49 Family history of ischemic heart disease and other diseases of the circulatory system; Z85.3 Personal history of malignant neoplasm of breast; Z87.891 Personal history of nicotine dependence; Z90.13 Acquired absence of bilateral breasts and nipples; Z90.49 Acquired absence of other specified parts of digestive tract; Z98.890 Other specified postprocedural states
CPT/HCPCS: 36415; 72193; 80048; 80053; 82150; 83690; 85025; 87040; 87070; 87077; 87186; 87205; 96374; 99285

== ENCOUNTER 2021-09-03 06:24 | Day surgery (SDC) | payer BC ==
[~2021-09-03 06:24] MED LIST changes: +ACETAMINOPHEN TAB 500 MG TAB PO PRN; +HEPARIN SODIUM,PORCINE/PF 5,000 UNIT/0.5 ML SYRINGE SQ PRN; +HYDROmorphone 0.5 MG/0.5 ML SYRINGE IVP PRN; -LIDOCAINE 1% (10MG/ML) FOR IV START INTRADERMA PRN; -MIDAZOLAM 2 MG/2 ML VIAL IV PRN
[2021-09-03] MEDS ORDERED: MIDAZOLAM 2 MG/2 ML VIAL IVP ONE (07:04)
[2021-09-03] MEDS ORDERED: SUCCINYLCHOLINE CHLORIDE 100 MG/5 ML SYR IV ONE (07:51)
[2021-09-03] MEDS ORDERED: LIDOCAINE 1% INJ 10MG/ML (20 ML MDV) ONE (07:51)
[2021-09-03] MEDS ORDERED: fentaNYL (PF) 50 MCG/ML 2 ML AMP ONE (07:51)
[2021-09-03] MEDS ORDERED: KETOROLAC 15 MG/ML 1 ML VIAL ONE (07:51)
[2021-09-03] MEDS ORDERED: PROPOFOL 10 MG/ML 20 ML VIAL IV ONE (07:51)
[2021-09-03] MEDS ORDERED: MIDAZOLAM 2 MG/2 ML VIAL ONE (07:51)
[2021-09-03] MEDS ORDERED: HYDROmorphone (PF) 1 MG/ML ONE (07:51)
[2021-09-03] MEDS ORDERED: BUPIVACAIN-EPI 0.25%-1:200,000 30 ML VIAL SQ ONE ×2 (08:23)
--- NOTE | 2021-09-03 08:44 | P.OP ---
Date of Procedure: 09/03/21 Preoperative Diagnosis: Perirectal abscess Postoperative Diagnosis: Perirectal fistula Procedure(s) Performed: Perirectal fistulectomy Internal sphincterotomy Anesthesia: CORETTA Surgeon: Mert Santizo Estimated Blood Loss (ml): 10 Pathology: none sent Condition: stable Disposition: PACU Description of Procedure: The patient's placed on the operating table in the prone position. She received general anesthesia. Her anus was prepped and draped usual sterile fashion. The air was a fistula noted at the 7 o'clock position. Using the neoprobe the fistula appeared to be superficial and entered the rectum. The fistula was unroofed. A portion of the echelon went through the internal sphincter. A interested was withdrawn he was performed. There was minimal bleeding. The bleeding points were coagulated with left cautery. Sterile dressings applied. Patient top she will was sent to recovery room in stable condition
[2021-09-03 08:55] VITALS: TEMP 97.7
[2021-09-03 09:02] VITALS: RESP 16
[2021-09-03 10:11] VITALS: BP 132/83; PULSE 81
== END 2021-09-03 10:30 | disposition home or self-care (01) ==
LOC: OR 06:24
PROVIDERS: ATTEND Surgery
DX: K61.1 Rectal abscess (principal); I10 Essential (primary) hypertension; K21.9 Gastro-esophageal reflux disease without esophagitis; Z79.899 Other long term (current) drug therapy; Z85.3 Personal history of malignant neoplasm of breast
CPT/HCPCS: 81025; 46270; J2250; J1100; J2405; J2001; J3010; J1170; J1885; J0330; J2704; J1644

== ENCOUNTER → 2023-05-04 | Outpatient (CLI) | payer BC ==
--- NOTE | 2023-05-04 08:30 | XR ---
EXAMINATION TYPE: XR foot complete RT DATE OF EXAM: 05/04/2023 CLINICAL HISTORY: pain TECHNIQUE: Frontal, lateral and oblique images of the right foot are obtained. COMPARISON: None. FINDINGS: There is no acute fracture/dislocation evident. The joint spaces appear within normal mcneil its. The overlying soft tissue appears unremarkable. IMPRESSION: There is no acute fracture or dislocation. ICD 10 NO FRACTURE, INITIAL EVALUATION
== END | disposition home or self-care (01) ==
LOC: RADXRMAIN 08:03
PROVIDERS: ATTEND Family Medicine
DX: M79.671 Pain in right foot (principal)